=== PATIENT | female | born 1980 | race Caucasian/White ===

== ENCOUNTER → 2016-03-29 | Outpatient (REF) | payer BC ==
[~2016-03-29] MED LIST: PRENTAB43 PO; ZOLO50TA PO
[2016-03-29 18:37] LABS: ALBUMIN/GLOBULIN RATIO 1.38 (1.00-1.93); ALKALINE PHOSPHATASE 52 U/L (45-117); ALT/SGPT 21 U/L (12-78); ANION GAP 8 MEQ/L (8-16); AST/SGOT 15 U/L (15-37); BILIRUBIN,TOTAL 0.3 MG/DL (0.2-1.0); BLOOD UREA NITROGEN 14 MG/DL (7-18); CALCIUM LEVEL 8.7 MG/DL (8.5-10.1); CARBON DIOXIDE LEVEL 29 MEQ/L (21-32); CHLORIDE LEVEL 109 MEQ/L (98-107); CREATININE FOR GFR 0.78 MG/DL (0.55-1.02); GLOMERULAR FILTRATION RATE > 60.0 (>60); GLUCOSE, FASTING 91 MG/DL (70-105); SODIUM LEVEL 146 MEQ/L (136-145); TOTAL PROTEIN 6.9 GM/DL (6.4-8.2)
[2016-03-29 18:47] LABS: BASO % 0.6 % (0.0-1.0); EOS # 0.2 K/mm3 (0.0-0.50); LARGE UNSTAINED CELL # 0.1 K/mm3 (0.0-0.4); LARGE UNSTAINED CELL % 1.8 % (0.0-4.0); LYMPH # 2.4 K/mm3 (1.5-4.5); LYMPH % 46.4 % (24.0-44.0); MEAN CORPUSCULAR HEMOGLOBIN 31.2 pg (27.0-33.0); MEAN CORPUSCULAR HGB CONC 33.2 g/dl (32.0-36.5); MEAN CORPUSCULAR VOLUME 93.8 fl (80.0-96.0); MONO # 0.3 K/mm3 (0.0-0.8); MONO % 5.6 % (0.0-5.0); NEUTROPHILS # 2.1 K/mm3 (1.8-7.7); NEUTROPHILS % 42.5 % (36.0-66.0); PLATELET COUNT, AUTOMATED 205 k/mm3 (150-450); RED CELL DISTRIBUTION WIDTH 11.9 % (11.5-14.5)
== END ==
LOC: M SFHCADAM 08:32
PROVIDERS: ATTEND Physician Assistant
DX: R10.31 Right lower quadrant pain (principal)

== ENCOUNTER → 2016-04-04 | Outpatient (CLI) | payer BC ==
--- NOTE | 2016-04-04 14:56 | REP ---
Clinical: Pelvic pain . Technique: Transabdominal pelvic ultrasound followed by transvaginal examination for better evaluation of the endometrium and adnexa with color Doppler evaluation of the ovaries. Findings: Bladder is unremarkable and measures 4.8 x 1.5 x 2.8 cm . Heterogeneous anteverted uterus measures 10.1 x 5.4 x 6.9 cm . The endometrial complex measures 5.3 mm thickness. No discrete uterine or endometrial abnormalities are appreciated. Incidental note is made of Nabothian cyst in the lower uterine segment. Bilateral ovaries are normal in appearance and vascularity without evidence for torsion. Right ovary measures 3.8 x 2.5 x 2.4 cm with few follicles ; R I = 0.65 . Left ovary measures 2.9 x 2.1 x 2.7 cm with a few follicles ; R I = 0.55. No pelvic fluid or adnexal mass lesion . Impression: 1. heterogeneous anteverted uterus with Nabothian cyst otherwise unremarkable. 2. Normal bilateral ovaries without evidence for torsion. Signed by Juan Cooper MD 04/04/2016 02:47 P
== END ==
LOC: M SMT 13:49
PROVIDERS: ATTEND Obstetrics & Gynecology
DX: R10.2 Pelvic and perineal pain (principal); N88.8 Other specified noninflammatory disorders of cervix uteri

== ENCOUNTER → 2016-05-10 | Outpatient (REF) | payer BC | LOC: M LAB REF 13:02 | PROVIDERS: ATTEND Obstetrics & Gynecology | DX: Z12.4 Encounter for screening for malignant neoplasm of cervix (principal) ==

== ENCOUNTER 2016-07-31 21:10 | Emergency (ER) | payer BC ==
[~2016-07-31] VITALS: Ht 165.1 cm; Wt 61.2 kg
[2016-07-31] MEDS ORDERED: BUPR300T34 (21:20)
[2016-07-31] MEDS ORDERED: HYDR-3713 PO (21:21)
[2016-07-31] MEDS ORDERED: NS 1,000 ML IV SCH (22:31)
[2016-07-31] MEDS ORDERED: ONDANSETRON 4MG/2ML VIAL (J2405) IV ONE (22:45)
[2016-07-31 23:04] LABS: BASO # 0.1 K/mm3 (0.0-0.2); BASO % 0.9 % (0.0-1.0); EOS # 0.2 K/mm3 (0.0-0.50); EOS % 2.2 % (0.0-3.0); LARGE UNSTAINED CELL # 0.2 K/mm3 (0.0-0.4); LARGE UNSTAINED CELL % 2.4 % (0.0-4.0); LYMPH # 2.3 K/mm3 (1.5-4.5); LYMPH % 31.3 % (24.0-44.0); MEAN CORPUSCULAR HEMOGLOBIN 30.8 pg (27.0-33.0); MEAN CORPUSCULAR HGB CONC 33.2 g/dl (32.0-36.5); MEAN CORPUSCULAR VOLUME 92.6 fl (80.0-96.0); MONO # 0.4 K/mm3 (0.0-0.8); MONO % 5.7 % (0.0-5.0); NEUTROPHILS # 3.8 K/mm3 (1.8-7.7); NEUTROPHILS % 57.5 % (36.0-66.0); PLATELET COUNT, AUTOMATED 286 k/mm3 (150-450); WHITE BLOOD COUNT 6.7 K/mm3 (4.0-10.0)
[2016-07-31] MEDS: MORPHINE 2 MG/ML 1ML SYRINGE IV PRN (23:11)
[2016-07-31 23:15] LABS: INR 0.97
[2016-07-31 23:27] LABS: CONTROL LINE HCG INT CTR LINE PRESENT
[2016-07-31 23:34] LABS: ALBUMIN 4.1 GM/DL (3.2-5.2); ALKALINE PHOSPHATASE 53 U/L (45-117); ALT/SGPT 19 U/L (12-78); ANION GAP 8 MEQ/L (8-16); AST/SGOT 15 U/L (15-37); BILIRUBIN,DIRECT 0.1 MG/DL (0.0-0.2); BILIRUBIN,TOTAL 0.4 MG/DL (0.2-1.0); BLOOD UREA NITROGEN 19 MG/DL (7-18); CALCIUM LEVEL 8.8 MG/DL (8.5-10.1); CARBON DIOXIDE LEVEL 26 MEQ/L (21-32); CHLORIDE LEVEL 104 MEQ/L (98-107); CREATININE FOR GFR 0.93 MG/DL (0.55-1.02); GLOMERULAR FILTRATION RATE > 60.0 (>60); GLUCOSE, FASTING 98 MG/DL (70-105); POTASSIUM SERUM 3.9 MEQ/L (3.5-5.1); SODIUM LEVEL 138 MEQ/L (136-145); TOTAL PROTEIN 8.2 GM/DL (6.4-8.2)
[2016-08-01] MEDS: MORPHINE 2 MG/ML 1ML SYRINGE IV PRN (01:13)
[2016-08-01] MEDS ORDERED: BACT800T5 PO (01:43)
[2016-08-01] MEDS ORDERED: BACTRIM 160MG/800MG DS TAB PO ONE (01:45)
[2016-08-01 01:56] VITALS: BP 110/65
[2016-08-01] MEDS ORDERED: PHENAZOPYRIDINE 100 MG TAB PO ONE (02:00)
== END 2016-08-01 02:03 | disposition home or self-care (01) ==
LOC: M ED 22:24
DX: N39.0 Urinary tract infection, site not specified (principal); N20.0 Calculus of kidney; Z79.899 Other long term (current) drug therapy
CPT/HCPCS: 74176; 80048; 80076; 81001; 83690; 84703; 85025; 85610; 96374; 96375; 96376; 99283; J2405

== ENCOUNTER → 2017-01-20 | Outpatient (REF) | payer BC ==
[~2017-01-20] MED LIST changes: +BACT800T5 PO; +BUPR300T34; +HYDR-3713 PO
== END ==
LOC: M LAB REF 16:48
PROVIDERS: ATTEND Physician Assistant
DX: R30.0 Dysuria (principal)

== ENCOUNTER → 2020-07-21 | Outpatient (REF) | payer BC ==
[~2020-07-21] MED LIST changes: -BUPR300T34; +BUPR300T92
[2020-07-22 11:58] LABS: BLOOD UREA NITROGEN 17 MG/DL (7-18); CALCIUM LEVEL 9.4 MG/DL (8.5-10.1); CARBON DIOXIDE LEVEL 29 MEQ/L (21-32); CHLORIDE LEVEL 107 MEQ/L (98-107); CREATININE FOR GFR 0.97 MG/DL (0.55-1.30); GLOMERULAR FILTRATION RATE > 60.0 (>60); GLUCOSE, FASTING 89 MG/DL (70-100); POTASSIUM SERUM 5.3 MEQ/L (3.5-5.1); SODIUM LEVEL 140 MEQ/L (136-145)
== END ==
LOC: M SFHCADAM 15:33
PROVIDERS: ATTEND Physician Assistant
DX: N20.0 Calculus of kidney (principal)

== ENCOUNTER → 2022-05-04 | Outpatient (REF) | payer BC | LOC: M PLALAB 10:34 | PROVIDERS: ATTEND Obstetrics & Gynecology | DX: Z01.419 Encounter for gynecological examination (general) (routine) without abnormal findings (principal); R30.0 Dysuria | CPT/HCPCS: 87086; 87491; 87591; 87624; 87661; 87798; G0123 ==

== ENCOUNTER → 2022-05-04 | Outpatient (CLI) | payer BC | LOC: M WHC 08:57 | PROVIDERS: ATTEND Obstetrics & Gynecology | DX: Z12.31 Encounter for screening mammogram for malignant neoplasm of breast (principal); R92.8 Other abnormal and inconclusive findings on diagnostic imaging of breast ==

== ENCOUNTER → 2022-05-19 | Outpatient (CLI) | payer BC | LOC: M WHC 08:13 | PROVIDERS: ATTEND Obstetrics & Gynecology | DX: R92.2 Inconclusive mammogram (principal); N63.21 Unspecified lump in the left breast, upper outer quadrant; N60.11 Diffuse cystic mastopathy of right breast | CPT/HCPCS: 76642; 77065; G0279 ==

== ENCOUNTER 2023-05-18 14:40 | Emergency (ER) | payer BC ==
[~2023-05-18] VITALS: Ht 165.1 cm; Wt 68.3 kg
[2023-05-18] MEDS ORDERED: NAPR220C14 PO (15:04)
[2023-05-18] MEDS ORDERED: KETO10TAB PO (18:31)
[2023-05-18] MEDS ORDERED: METH-1165 PO (18:31)
[2023-05-18] MEDS: ACETAMINOPHEN TAB 650MG DOSE (2X325MG) PO ONE (18:40)
[2023-05-18] MEDS: KETOROLAC 30 MG/ML 1ML VIAL IM ONE (18:41)
[2023-05-18 18:51] VITALS: BP 134/87; TEMP 97.8; O2SAT 100
== END 2023-05-18 19:03 | disposition home or self-care (01) ==
LOC: M ED 15:19
DX: S39.012A Strain of muscle, fascia and tendon of lower back, initial encounter (principal); F41.9 Anxiety disorder, unspecified; F32.A Depression, unspecified; Z79.899 Other long term (current) drug therapy; Z79.1 Long term (current) use of non-steroidal anti-inflammatories (NSAID); Y92.9 Unspecified place or not applicable; Y93.9 Activity, unspecified; Y99.9 Unspecified external cause status
CPT/HCPCS: 96372; 99283; J1885

== ENCOUNTER 2023-05-20 05:43 | Emergency (ER) | payer BC ==
[~2023-05-20] VITALS: Ht 165.1 cm; Wt 68.3 kg
[~2023-05-20 05:43] MED LIST changes: +KETO10TAB PO; +METH-1165 PO; +NAPR220C14 PO
[2023-05-20] MEDS: NS 1,000 ML IV ONE (06:38)
[2023-05-20] MEDS: ONDANSETRON 4MG 2ML VIAL IV PRN (06:39)
[2023-05-20] MEDS: MORPHINE 2 MG/ML 1ML VIAL IV ONE (06:40)
[2023-05-20] MEDS ORDERED: ISOVUE-370 76% 100ML VIAL As Ordered ONE (06:59)
[2023-05-20 07:01] LABS: WHITE BLOOD COUNT 4.8 10^3/uL (4.0-10.0)
[2023-05-20 07:02] LABS: BASO % 0.8 % (0.0-1.0); EOS # 0.1 10^3/uL (0.0-0.5); EOS % 2.9 % (0.0-3.0); HEMATOCRIT 34.9 % (36.0-47.0); HEMOGLOBIN 11.5 g/dl (12.0-15.5); LYMPH % 41.6 % (24.0-44.0); MEAN CORPUSCULAR HEMOGLOBIN 31.3 pg (27.0-33.0); MEAN CORPUSCULAR VOLUME 94.8 fl (80.0-96.0); MONO # 0.4 10^3/uL (0.0-0.8); MONO % 7.7 % (2.0-8.0); NEUTROPHILS # 2.3 10^3/uL (1.5-8.5); NEUTROPHILS % 46.8 % (36.0-66.0); PLATELET COUNT, AUTOMATED 197 10^3/uL (150-450); RED BLOOD COUNT 3.68 10^6/uL (4.00-5.40)
[2023-05-20 08:00] LABS: ALBUMIN 3.5 G/DL (3.2-5.2); BILIRUBIN,DIRECT 0.1 MG/DL (<0.4); BILIRUBIN,TOTAL 0.3 MG/DL (0.3-1.2); TOTAL PROTEIN 6.2 G/DL (5.7-8.2)
[2023-05-20 08:35] VITALS: BP 129/72; TEMP 98.3; O2SAT 100
== END 2023-05-20 08:38 | disposition home or self-care (01) ==
LOC: M ED 05:43
DX: N94.89 Other specified conditions associated with female genital organs and menstrual cycle (principal); R16.0 Hepatomegaly, not elsewhere classified; K76.0 Fatty (change of) liver, not elsewhere classified; F41.9 Anxiety disorder, unspecified; F32.A Depression, unspecified; Z87.442 Personal history of urinary calculi; F17.200 Nicotine dependence, unspecified, uncomplicated
CPT/HCPCS: 74177; 80047; 80076; 81001; 84702; 85025; 96361; 96374; 96375; 99284; J2405; Q9967

== ENCOUNTER → 2023-07-13 | Outpatient (CLI) | payer BC ==
[~2023-07-13] MED LIST changes: +BUPR-597; -BUPR300T92
== END ==
LOC: M WHC 09:23
PROVIDERS: ATTEND Obstetrics & Gynecology
DX: Z12.31 Encounter for screening mammogram for malignant neoplasm of breast (principal); R92.333 Mammographic heterogeneous density, bilateral breasts

== ENCOUNTER → 2023-07-14 | Outpatient (REF) | payer BC | LOC: M SFHCWAGY 15:05 | PROVIDERS: ATTEND Obstetrics & Gynecology | DX: Z77.9 Other contact with and (suspected) exposures hazardous to health (principal); Z12.4 Encounter for screening for malignant neoplasm of cervix | CPT/HCPCS: 87624; G0123 ==

== ENCOUNTER → 2023-08-02 | Outpatient (CLI) | payer BC | LOC: M WHC 10:22 | PROVIDERS: ATTEND Obstetrics & Gynecology | DX: R92.8 Other abnormal and inconclusive findings on diagnostic imaging of breast (principal); R92.343 Mammographic extreme density, bilateral breasts; N60.02 Solitary cyst of left breast | CPT/HCPCS: 76642; 77065; G0279 ==

== ENCOUNTER → 2024-01-30 | Outpatient (REF) | payer BC ==
[2024-01-30 14:53] LABS: HEMATOCRIT 41.4 % (36.0-47.0); HEMOGLOBIN 13.6 g/dl (12.0-15.5); MEAN CORPUSCULAR HEMOGLOBIN 31.1 pg (27.0-33.0); MEAN CORPUSCULAR HGB CONC 32.9 g/dl (32.0-36.5); MEAN CORPUSCULAR VOLUME 94.7 fl (80.0-96.0); PLATELET COUNT, AUTOMATED 261 10^3/uL (150-450); RED BLOOD COUNT 4.37 10^6/uL (4.00-5.40); WHITE BLOOD COUNT 5.3 10^3/uL (4.0-10.0)
[2024-01-30 14:59] LABS: ALKALINE PHOSPHATASE 47 U/L (35-104); ALT/SGPT 16 U/L (7.0-40); AST/SGOT 9 U/L (<34); BILIRUBIN,TOTAL 0.5 MG/DL (0.3-1.2); BLOOD UREA NITROGEN 14 MG/DL (9-23); CALCIUM LEVEL 9.4 MG/DL (8.5-10.1); CARBON DIOXIDE LEVEL 27 MMOL/L (20-31); CHLORIDE LEVEL 109 MMOL/L (98-107); CHOLESTEROL LEVEL 202 MG/DL (<200); CREATININE FOR GFR 0.97 MG/DL (0.55-1.30); GLOMERULAR FILTRATION RATE > 60.0 (>58); GLUCOSE, FASTING 99 MG/DL (60-100); LDL CHOLESTEROL 121.4 MG/DL (<100); POTASSIUM SERUM 4.6 MMOL/L (3.5-5.1); SODIUM LEVEL 141 MMOL/L (136-145); THYROID STIMULATING HORMONE 1.776 uIU/ML (0.55-4.78); TOTAL PROTEIN 7.2 G/DL (5.7-8.2); TRIGLYCERIDES LEVEL 43 MG/DL (<150)
[2024-01-30 15:01] LABS: FREE T4 1.19 NG/DL (0.89-1.76)
== END ==
LOC: M SFHCADAM 08:09
PROVIDERS: ATTEND Physician Assistant
DX: F32.1 Major depressive disorder, single episode, moderate (principal); Z23 Encounter for immunization; Z13.220 Encounter for screening for lipoid disorders; Z13.1 Encounter for screening for diabetes mellitus